=== PATIENT | male | born 1985 | race Caucasian/White ===

== ENCOUNTER 2021-05-04 06:39 | Emergency (ER) | payer OTHER ==
[~2021-05-04] VITALS: Ht 175.3 cm; Wt 101.2 kg
[2021-05-04 06:58] LABS: ABSOLUTE BASOPHILS 0.1 thou/uL (0.0-0.2); ABSOLUTE EOSINOPHILS 0.4 thou/uL (0.0-0.7); ABSOLUTE LYMPHOCYTES 2.9 thou/uL (0.8-5.3); ABSOLUTE MONOCYTES 0.9 thou/uL (0.0-1.2); ABSOLUTE NEUTROPHILS 6.4 thou/uL (1.6-8.1); BASOPHILS 0.7 %; EOSINOPHILS 3.5 %; HEMATOCRIT 44.9 % (42.0-52.0); LYMPHOCYTES 27.6 %; MCH 30.2 pg (26.0-34.0); MCHC 35.7 g/dL (28.0-37.0); MCV 84.7 fL (80.0-100.0); MONOCYTES 8.3 %; MPV 6.9 fl. (7.2-11.1); NUCLEATED RBCS 0 /100WBC; PLATELET COUNT* 399 thou/uL (150-400); POLYS 59.9 %; RDW-CV 13.4 % (10.5-14.5); WBC 10.6 thou/uL (4.0-11.0)
[2021-05-04 07:04] LABS: CALCIUM 9.1 mg/dL (8.5-10.1); CREATININE 0.9 mg/dL (0.6-1.3); POTASSIUM 3.8 mmol/L (3.5-5.1)
[2021-05-04 08:28] LABS: URINE BLOOD 3+ (Negative); URINE CLARITY CLEAR; URINE COLOR YELLOW; URINE GLUCOSE-RANDOM NEGATIVE (Negative); URINE KETONES TRACE (Negative); URINE LEUKOCYTES-REFLEX NEGATIVE (Negative); URINE NITRITE-REFLEX NEGATIVE (Negative); URINE PROTEIN 2+ (Negative); URINE SPECIFIC GRAVITY >= 1.030 (1.005-1.030)
[2021-05-04 08:30] LABS: URINE BILIRUBIN 1+ (Negative)
[2021-05-04 08:31] LABS: ICTOTEST (BILI CONFIRMATORY) Negative (Negative)
[2021-05-04 08:43] LABS: BACTERIA-REFLEX 1-9 Few /HPF (None Seen); CASTS None Seen /LPF (None Seen); CRYSTALS None Seen /LPF (None Seen); SQUAMOUS 0-3 Few /LPF (0-3); URINE RBC 3-10 Few /HPF (0-2); URINE WBC-REFLEX 6-15 Few /HPF (0-5)
[2021-05-04] MEDS ORDERED: IBUPROFEN 800800 M1 PO (09:16)
[2021-05-04] MEDS ORDERED: ZOFRAN ODT4 MG DISSOLVE (09:16)
[2021-05-04] MEDS ORDERED: HYDROCODON-ACE1 EAC7 PO (09:16)
[2021-05-04] MEDS ORDERED: FLOMAX0.4 MG PO (09:16)
[2021-05-04 09:32] VITALS: BP 124/68
[2021-05-06] MEDS ORDERED: PYRIDIUM200 MG PO (18:29)
[2021-05-06] MEDS ORDERED: BACTRIM DS TAB1 EAC1 PO (18:31)
== END 2021-05-04 09:33 | disposition home or self-care (01) ==
LOC: M.ERS 06:39
PROVIDERS: Emergency Medicine; Emergency Medicine Emergency Medical Services
DX: N20.0 Calculus of kidney (principal); Z87.442 Personal history of urinary calculi; Z88.5 Allergy status to narcotic agent

== ENCOUNTER → 2021-05-06 | Day surgery (SDC) | payer OTHER ==
[~2021-05-06] MED LIST: BACTRIM DS TAB1 EAC1 PO; FLOMAX0.4 MG PO; HYDROCODON-ACE1 EAC7 PO; IBUPROFEN 800800 M1 PO; PYRIDIUM200 MG PO; ZOFRAN ODT4 MG DISSOLVE
--- NOTE | ~2021-05-06 | OP ---
[address] [address] OPERATIVE REPORT Name: SHAY GUTIERREZ Room: [facility]#: [id number] Admission: 05/06/21 Attend Phys: Dilip Pina MD Discharge: Date of : 87 Report #: [id number] THIS REPORT FOR: cc: ALEXANDRA - No family physician/PCP FAM - No family physician/PCP Dilip Pina MD ~ DATE OF SURGERY: 05/06/2021 PREOPERATIVE DIAGNOSIS: A 6 mm left UPJ stone. POSTOPERATIVE DIAGNOSIS: A 6 mm left UPJ stone. PROCEDURE: Cystoscopy, left retrograde pyelogram, left ureteroscopy with holmium laser lithotripsy, ureteroscopic stone extraction, placement of left ureteral stent with attached string. STAFF SURGEON: Dilip Pina MD EMAIL SPECIALIST: None. ANESTHESIA: General. ESTIMATED BLOOD LOSS: None. COMPLICATIONS: None. SPECIMENS: Left ureteral stone fragment. DRAINS: A 28 cm x 4.8 cm, 6-Finnish left ureteral stent with attached string. INDICATIONS: The patient is a pleasant 36-year-old white male with history of kidney stones, presented with acute onset left flank pain. CT scan documented 6 mm left ureteropelvic junction stone in the emergency room, but he was sent home. He appeared to my office today with standard renal colicky pain, could not get any comfortable rather moderate to severe. He was counseled regarding treatment options, elected for definitive cystoscopy, left retrograde pyelogram, left ureteroscopy, possible holmium laser lithotripsy, possible placement of left ureteral stent. After risks and benefits of the procedure explained and informed consent was obtained. OPERATIVE PROCEDURE: The patient was taken to the operating room comfortably placed in the dorsal lithotomy position under adequate general anesthesia. He was sterilely prepped and draped in standard fashion exposing only the genitalia. He received his antibiotic therapy as prescribed. Appropriate timeout was carried out and all were in agreement. A 22-Finnish cystoscope was placed into the urethra. Anterior urethra was normal [place] [address] OPERATIVE REPORT Name: SHAY GUTIERREZ Room: [facility]#: [id number] Admission: 05/06/21 Attend Phys: Dilip Pina MD Discharge: Date of : 87 Report #: [id number] Prostate showed minimal hyperplasia. Bladder was systematically viewed. Both ureteral stent appeared normal. No bladder calculi seen or foreign body observed. Mucosa was smooth without any irregularity. An 8-Finnish cone-tipped catheter placed in the left ureteral orifice and retrograde pyelogram showing a narrow caliber ureter all the way up to the ureteropelvic junction where there was some dilation more proximally. An 0.035 Glidewire was gently placed up the left ureter to the level of kidney and the cystoscope was removed. A 4.5 Finnish tapered to a 6.5-Finnish Linton semi-rigid ureteroscope advanced through the urethra up into the left ureter slowly advanced all the way up to the level of stone at the ureteropelvic junction was able to engage the stone with a 1.9 Finnish escape basket and brought down into the proximal ureter. A 272 micron holmium laser fiber set at 6.4 du began to pulverize the stone into multiple fragments. I then slowly extracted the basket removing one of the small fragments. Repeat ureteroscopy came out, verifying. It was carried out placed back into the urethra up the left ureter. No other stone fragments remained in the ureter and there were a few stone fragments sitting in the bladder. The ureteroscope was then removed and a cystoscope was backloaded over the wire and a 28 cm x 4.8 Finnish ureteral stent was put in place and positioned with good coil in left renal pelvis, good coil in the bladder. The bladder was drained, cystoscope was removed. He tolerated this extremely well. Lidocaine jelly was placed into his urethra. String was left attached, secured to outside of the phallus with a Tegaderm. He was extubated in the operating room, transferred to [facility] with assistance and went to recovery in stable condition. I will have him remove the stent on Monday. Follow up in our office in 6 weeks with a renal ultrasound. By: [id number] Vern Pina MD /annie
== END | disposition home or self-care (01) ==
LOC: M.SUR 13:08
PROVIDERS: ATTEND Urology
DX: N13.0 Hydronephrosis with ureteropelvic junction obstruction (principal); R10.9 Unspecified abdominal pain; Z98.890 Other specified postprocedural states; Z20.822 Contact with and (suspected) exposure to COVID-19; Z87.442 Personal history of urinary calculi